=== PATIENT | female | born 1990 | race Caucasian/White ===

== ENCOUNTER 2023-04-19 14:54 | Day surgery (SDC) | payer OTHER ==
[2023-04-19] MEDS ORDERED: LIDOCAINE HCL 1% 50 MG/5 ML VL PF IJ ONE (14:55)
[2023-04-19] MEDS ORDERED: BUPIVACAINE 0.5% VIAL IJ ONE (14:55)
[2023-04-19] MEDS ORDERED: Depo-Medrol 40 MG/ML IM ONE (14:55)
[2023-04-19 16:40] LABS: HCG URINE TEST NEGATIVE (NEGATIVE)
--- NOTE | 2023-04-19 20:38 | XRAY ---
Indication: Left shoulder and subacromial bursa injection. Intraoperative fluoroscopy provided for 26 seconds. 2 digital spot image submitted for interpretation demonstrates needle tip projecting over the left glenohumeral joint superiorly. Second needle tip subacromial. Small amount of contrast injected for both needle tip placement. Correlate with intraoperative findings/report.
--- NOTE | 2023-04-20 09:19 | XRAY ---
26 seconds of fluoroscopy was used in surgery for a left intra-articular shoulder and subacromial bursa injection.
== END 2023-04-19 18:50 | disposition home or self-care (01) ==
LOC: SDC-PAIN 14:54
PROVIDERS: ATTEND Psychiatry & Neurology Pain Medicine
DX: M19.012 Primary osteoarthritis, left shoulder (principal)
CPT/HCPCS: 20610; 73030; 77002; 81025; J1030; J2001; Q9966